=== PATIENT | female | born 2000 ===

== ENCOUNTER 2020-03-03 11:26 | Outpatient (NON) | payer OTHER, SELFPAY ==
[2020-03-03 21:15] LABS: SARS-CoV-2 RNA PCR Negative
== END 2020-03-03 11:27 ==
LOC: ANHCOVIDDT 11:29
PROVIDERS: Visit Provider Pediatrics
DX: Z20.828 Contact with and (suspected) exposure to other viral communicable diseases (principal); J02.9 Acute pharyngitis, unspecified; R05 Cough; R09.89 Other specified symptoms and signs involving the circulatory and respiratory systems
CPT/HCPCS: 87635; C9803; U0003